=== PATIENT | female | born 1950 | race Caucasian/White ===

== ENCOUNTER → 2020-09-01 | Outpatient (CLI) | payer MEDICARE, BC ==
--- NOTE | 2020-09-01 09:45 | RADIOLOGY REPORT (SQ) ---
EXAM DESCRIPTION: MRI LUMBAR SPINE WITHOUT IMAGES COMPLETED DATE/TIME: 09/01/2020 8:33 am REASON FOR STUDY: RADICULOPATHY, LOWER EXTREMITY M54.10 RADICULOPATHY, SITE UNSPECIFIED COMPARISON: None. TECHNIQUE: Sagittal and Axial imaging includes T1, T2, STIR and gradient echo sequences. Coronal T2/ HASTE imaging. LIMITATIONS: None. FINDINGS: VISUALIZED UPPER ABDOMEN: Limited evaluation. No acute or suspicious findings suggested. SEGMENTATION: No transitional anatomy. The lowest well-developed disc space is labeled L5-S1. ALIGNMENT: Anatomic. VERTEBRAE: Intact. BONE MARROW: T1 and T2 bright lesion within the T11 vertebral body most compatible with hemangioma. No additional evidence of marrow replacing process. No reactive edema. DISC SIGNAL: Multilevel disc desiccation greatest at L2-S1. POSTERIOR ELEMENTS: Generally intact. No pars defect evident. Multilevel facet arthropathy through out the lower lumbar spine, greatest at L3-S1. HARDWARE: None in the spine. CORD AND CONUS: Normal in size and signal intensity. Conus medullaris terminates at L1-2. SOFT TISSUES: No aortic aneurysm seen. No bulky retroperitoneal adenopathy or mass. No paraspinal mas s or fluid. L1-L2: Right paracentral posterior disc extrusion which extends cranially approximately 14 mm. Likel y associated small annular fissure. There is mild lateral recess narrowing without high-grade spinal canal stenosis. No high-grade neural foraminal narrowing. L2-L3: Broad-based circumferential disc bulge with resultant mild spinal canal stenosis and lateral r ecess narrowing. There is contact of the left traversing nerve roots. Mild bilateral neural foramin al narrowing. L3-L4: Broad-based circumferential disc bulge with moderate spinal canal stenosis and lateral recess narrowing. There is mild bilateral neural foraminal narrowing secondary to disc disease. L4-L5: Disc desiccation and height loss with circumferential broad-based disc bulge and bilateral lat eral recess narrowing with contact of the traversing nerve roots. There is [id number] bilatera l neural foraminal narrowing secondary to disc and facet disease. L5-S1: Disc desiccation and height loss with no high-grade spinal canal stenosis. [id number] n eural foraminal narrowing from disc and facet disease, right greater than left. LOWER THORACIC: Incompletely imaged. No stenosis seen. SACRUM: Visualized upper sacrum intact. OTHER: No other significant findings. IMPRESSION: 1. No evidence of acute bony abnormality of the lumbar spine. 2. Right paracentral posterior disc extrusion at L1-2 with mild associated lateral recess narrowing. No high-grade spinal canal stenosis or neural foraminal narrowing. 3. Multilevel degenerative change with additional level specific findings as above. No high-grade s isabel canal stenosis or neural foraminal narrowing. TECHNICAL DOCUMENTATION: JOB ID: [id number] 2010 [employer]- All Rights Reserved Reading location - IP/workstation name: [email or web address]
== END ==
LOC: RAD 09:03
PROVIDERS: ATTEND Internal Medicine
DX: M51.16 Intervertebral disc disorders with radiculopathy, lumbar region (principal)
CPT/HCPCS: 72148

== ENCOUNTER → 2020-11-24 | Outpatient (CLI) | payer MEDICARE, BC ==
[2020-11-24 09:50] LABS: ABSOLUTE BASOPHILS # (AUTO) 0.1 10^3/uL (0.0-0.2); ABSOLUTE EOSINOPHILS # (AUTO) 0.2 10^3/uL (0.0-0.6); ABSOLUTE LYMPHOCYTES (AUTO) 2.5 10^3/uL (0.5-4.7); ABSOLUTE MONOCYTES (AUTO) 0.7 10^3/uL (0.1-1.4); BASOPHILS % (AUTO) 1.2 % (0-2); EOSINOPHILS % (AUTO) 2.1 % (0-6); HEMATOCRIT 37.7 % (36.0-47.0); HEMOGLOBIN 11.6 g/dL (12.0-15.5); MEAN CORPUSCULAR HEMOGLOBIN 21.9 pg (27.0-33.4); MEAN CORPUSCULAR HGB CONC 30.8 g/dL (32.0-36.0); MEAN CORPUSCULAR VOLUME 71 fl (80-97); PLATELET COUNT 248 10^3/uL (150-450); RED BLOOD COUNT 5.29 10^6/uL (3.72-5.28); RED CELL DISTRIBUTION WIDTH 22.3 % (11.5-14.0); SEGMENTED NEUTROPHILS % (AUTO) 58.7 % (42-78); TOTAL CELLS COUNTED % (AUTO) 100 %; WHITE BLOOD COUNT 8.5 10^3/uL (4.0-10.5)
[2020-11-24 09:59] LABS: INTERNATIONAL RATION (INR) 0.82; PROTHROMBIN TIME 11.5 SEC (11.4-15.4)
[2020-11-24 10:15] LABS: ANION GAP 8 (5-19); BLOOD UREA NITROGEN 12 mg/dL (7-20); CALCIUM 9.9 mg/dL (8.4-10.2); CARBON DIOXIDE 27 mmol/L (22-30); CHLORIDE 104 mmol/L (98-107); GLUCOSE 175 mg/dL (75-110); POTASSIUM 4.6 mmol/L (3.6-5.0)
== END ==
LOC: LAB 09:19
PROVIDERS: ATTEND Physician Assistant
DX: I48.0 Paroxysmal atrial fibrillation (principal)
CPT/HCPCS: 36415; 80048; 83735; 85025; 85610